=== PATIENT | male | born 1965 | race African-American/Black ===

== ENCOUNTER 2025-01-09 18:11 | Inpatient (IN) | payer MEDICARE, MEDICAID ==
[~2025-01-09] VITALS: Ht 175.3 cm; Wt 120.2 kg
[~2025-01-09 18:11] MED LIST: DIVA250T2 PO; QUET25TA PO; RISO02 PO
[2025-01-09 18:48] VITALS: O2SAT 98
[2025-01-09] MEDS: SODIUM CHLORIDE 0.9% 1,000 ML IV ONE (20:30)
[2025-01-09 20:42] LABS: BASOPHILS % 0.8 % (0.0-2.0); EOSINOPHILS % 0.5 % (0.0-5.0); HEMATOCRIT. 26.7 % (42.0-52.0); HEMOGLOBIN. 8.5 g/dL (14.0-18.0); LYMPHOCYTES % 10.9 % (20.0-50.0); MEAN PLATELET VOLUME 8.6 fl (7.4-10.4); MONOCYTES % 5.0 % (2.0-8.0); NEUTROPHILS % 82.8 % (40.0-76.0); PLATELET 317 x1000/uL (130-400); RED BLOOD CELL COUNT 2.88 mill/uL (4.7-6.1); RED CELL DISTRIBUTION WIDTH 20.1 % (11.6-14.6)
[2025-01-09 20:56] LABS: UREA NITROGEN BLOOD 14 mg/dL (9-23)
[2025-01-09 20:57] LABS: CREATININE 0.9 mg/dL (0.6-1.3)
[2025-01-09 20:59] LABS: ASPARTATE AMINOTRANSFERASE 21 IU/L (<34); BILIRUBIN DIRECT 0.2 mg/dL (<=3.0); BILIRUBIN TOTAL 0.4 mg/dL (0.1-1.0); PROTEIN TOTAL 7.2 g/dL (6.0-8.3)
[2025-01-09] MEDS: PIPERACILLIN/TAZO 3.375G/50ML 50 ML IV ONE (21:33)
[2025-01-09] MEDS ORDERED: IPRATROPIUM/ALBUTEROL 0.5-3(2.5)MG/3ML NEB HHN PRN (23:15)
[2025-01-09] MEDS ORDERED: ACETAMINOPHEN 325MG TABLET PO PRN (23:15)
[2025-01-09] MEDS ORDERED: ONDANSETRON HCL 4MG/2ML INJ IV PRN (23:15)
[2025-01-09] MEDS: VANCOMYCIN 1G PREMIX 200 ML IV ONE (23:30)
[2025-01-09 23:31] LABS: INR 1.0
[2025-01-10] VITALS (7 sets, daily range): BP systolic 98–142; BP diastolic 76–95; PULSE 106–114; RESP 18–20; TEMP 35.8–36.6; O2SAT 96–100
[2025-01-10] LABS: CLARITY URINE CLEAR (CLEAR); COLOR URINE YELLOW (YELLOW); GLUCOSE URINE NEGATIVE (NEGATIVE); KETONES URINE TRACE (NEGATIVE); LEUKOCYTE ESTERASE URINE NEGATIVE (NEGATIVE); NITRITE URINE NEGATIVE (NEGATIVE); OCCULT BLOOD URINE NEGATIVE (NEGATIVE); PH URINE 5.5 (4.5-8.0); PROTEIN URINE 1+ (NEGATIVE); SPECIFIC GRAVITY URINE 1.024 (1.005-1.030); UROBILINOGEN URINE 1.0 E.U./dL (0.2-1.0)
[2025-01-10 02:13] LABS: SQUAMOUS EPITHELIAL CELL URINE FEW /lpf (RARE/1+)
[2025-01-10 02:14] LABS: RBC URINE 0-2 /hpf (0-2); WBC URINE 0-2 /hpf (0-2)
[2025-01-10 02:16] LABS: BACTERIA URINE TRACE
[2025-01-10] MEDS: POTASSIUM CHLORIDE 20MEQ/PACKET PO NR (03:20)
[2025-01-10] MEDS: VANCOMYCIN 1GM/200ML PMX (BAXTER) IV SCH (04:10)
[2025-01-10] MEDS: PIPERACILLIN/TAZO 3.375G/50ML 50 ML IV SCH (05:57)
[2025-01-10] MEDS: ENOXAPARIN 30MG/0.3ML SYR SUBCUT SCH (10:03)
[2025-01-10 17:23] LABS: HEMATOCRIT. 21.8 % (42.0-52.0); HEMOGLOBIN. 7.2 g/dL (14.0-18.0); MEAN PLATELET VOLUME 8.0 fl (7.4-10.4); PLATELET 266 x1000/uL (130-400); RED BLOOD CELL COUNT 2.43 mill/uL (4.7-6.1); RED CELL DISTRIBUTION WIDTH 20.2 % (11.6-14.6)
[2025-01-10 17:27] LABS: CREATININE 0.8 mg/dL (0.6-1.3)
[2025-01-10 17:28] LABS: UREA NITROGEN BLOOD 12 mg/dL (9-23)
[2025-01-10 17:30] LABS: PHOSPHORUS 2.2 mg/dL (2.5-4.9)
[2025-01-10] MEDS: ENOXAPARIN 100MG/ML SYR SUBCUT SCH (19:00)
[2025-01-10] MEDS: VANCOMYCIN 1GM PMX (XELLIA) 200 ML IV SCH (21:36)
[2025-01-11 04:00] VITALS: BP 133/84; PULSE 109; RESP 20; TEMP 36.1; O2SAT 100
[2025-01-11] MEDS: POTASSIUM PHOSPHATE 15 MMOL in DEXT 5% WATER 245 ML IV SCH (05:23)
[2025-01-11] MEDS: ACETAMINOPHEN 325MG TABLET PO PRN (06:33)
[2025-01-11 08:00] VITALS: BP 142/91; PULSE 111; RESP 17; TEMP 36.6; O2SAT 98
[2025-01-11 08:00] LABS: BAND% 9.0 % (1.0-6.0); EOSINOPHILS % MANUAL 1.0 % (0.0-5.0); LYMPHOCYTES % MANUAL 17.0 % (20.0-50.0); MONOCYTES % MANUAL 5.0 % (2.0-8.0); NEUTROPHILS % MANUAL 68.0 % (45.0-75.0); PLATELET ESTIMATE NORMAL
[2025-01-11 12:00] VITALS: BP 105/70; PULSE 111; RESP 16; TEMP 36.4; O2SAT 97
[2025-01-11] MEDS: SODIUM HYPOCHLORITE 0.125% 473ML SOLUTION TOP SCH (14:38)
[2025-01-11 16:00] VITALS: BP 134/88; PULSE 111; RESP 17; TEMP 36.3; O2SAT 98
[2025-01-11 17:40] LABS: MEAN PLATELET VOLUME 8.4 fl (7.4-10.4); PLATELET 292 x1000/uL (130-400); RED BLOOD CELL COUNT 2.18 mill/uL (4.7-6.1); RED CELL DISTRIBUTION WIDTH 20.1 % (11.6-14.6)
[2025-01-11 17:42] LABS: HEMATOCRIT. 19.9 % (42.0-52.0); HEMOGLOBIN. 6.4 g/dL (14.0-18.0)
[2025-01-11 17:58] LABS: CREATININE 0.7 mg/dL (0.6-1.3); UREA NITROGEN BLOOD 10 mg/dL (9-23)
[2025-01-11 17:59] LABS: EOSINOPHILS % MANUAL 1.0 % (0.0-5.0); LYMPHOCYTES % MANUAL 19.0 % (20.0-50.0); MONOCYTES % MANUAL 5.0 % (2.0-8.0); NEUTROPHILS % MANUAL 75.0 % (45.0-75.0); PLATELET ESTIMATE NORMAL
[2025-01-11] MEDS: POTASSIUM CHLORIDE 20MEQ TABLET SR PO SCH (19:01)
[2025-01-11 20:00] VITALS: BP 114/81; PULSE 114; RESP 19; TEMP 36; O2SAT 97
[2025-01-12] VITALS (13 sets, daily range): BP systolic 126–165; BP diastolic 83–105; PULSE 108–115; RESP 16–21; TEMP 36.05844–36.3; O2SAT 96–99
[2025-01-12] MEDS: HYDROCODONE/ACETAMINOPHEN 5/325MG TABLET PO PRN (00:02)
[2025-01-12] MEDS ORDERED: VANCOMYCIN 750MG PMX (XELLIA) 150 ML IV SCH (05:00)
[2025-01-12] MEDS: VANCOMYCIN 750MG PREMIX 150 ML IV SCH (05:42)
[2025-01-12 12:36] LABS: BASOPHILS % 0.4 % (0.0-2.0); EOSINOPHILS % 0.2 % (0.0-5.0); HEMATOCRIT. 23.1 % (42.0-52.0); HEMOGLOBIN. 7.7 g/dL (14.0-18.0); LYMPHOCYTES % 11.9 % (20.0-50.0); MEAN PLATELET VOLUME 7.8 fl (7.4-10.4); MONOCYTES % 8.0 % (2.0-8.0); NEUTROPHILS % 79.5 % (40.0-76.0); PLATELET 318 x1000/uL (130-400); RED BLOOD CELL COUNT 2.60 mill/uL (4.7-6.1); RED CELL DISTRIBUTION WIDTH 18.3 % (11.6-14.6)
[2025-01-12 12:50] LABS: CREATININE 0.6 mg/dL (0.6-1.3)
[2025-01-12 12:51] LABS: UREA NITROGEN BLOOD 9 mg/dL (9-23)
[2025-01-12] MEDS ORDERED: NALOXONE HCL 0.4MG/ML VIAL IV PRN (16:00)
[2025-01-12] MEDS: HYDROCODONE/ACETAMINOPHEN 10/325MG TABLET PO PRN (16:09)
[2025-01-13] VITALS: BP 121/75; PULSE 116; PULSE 66; RESP 20; RESP 22; TEMP 36.4; O2SAT 96
[2025-01-13 04:00] VITALS: BP 119/70; PULSE 114; RESP 20; TEMP 36.1; O2SAT 99
[2025-01-13 08:00] VITALS: BP_SYST 121; BP_SYST 127; BP_DIAS 90; PULSE 118; RESP 17; RESP 20; TEMP 36.4; TEMP 36.7; O2SAT 98; O2SAT 99
[2025-01-13 10:06] LABS: BASOPHILS % 1.3 % (0.0-2.0); EOSINOPHILS % 0.3 % (0.0-5.0); HEMATOCRIT. 23.0 % (42.0-52.0); HEMOGLOBIN. 7.5 g/dL (14.0-18.0); LYMPHOCYTES % 9.2 % (20.0-50.0); MEAN PLATELET VOLUME 7.8 fl (7.4-10.4); MONOCYTES % 5.7 % (2.0-8.0); NEUTROPHILS % 83.5 % (40.0-76.0); PLATELET 368 x1000/uL (130-400); RED BLOOD CELL COUNT 2.56 mill/uL (4.7-6.1); RED CELL DISTRIBUTION WIDTH 18.2 % (11.6-14.6)
[2025-01-13 10:21] LABS: INR 1.0
[2025-01-13 10:23] LABS: CREATININE 0.7 mg/dL (0.6-1.3); UREA NITROGEN BLOOD 9 mg/dL (9-23)
[2025-01-13] MEDS: POTASSIUM CHLORIDE 20MEQ/PACKET PO NR (11:45)
[2025-01-13 12:00] VITALS: BP 101/68; PULSE 119; RESP 16; RESP 18; TEMP 36.1; O2SAT 98
[2025-01-13] MEDS: SUCRALFATE 1G TABLET PO SCH (12:44)
[2025-01-13] MEDS: PANTOPRAZOLE 40MG DR TABLET PO SCH (12:44)
[2025-01-13 12:56] LABS: VITAMIN B12 SERUM 1627 pg/mL (211-911)
[2025-01-13 16:00] VITALS: BP 108/72; PULSE 122; RESP 18; TEMP 36.2; O2SAT 98
[2025-01-13 20:00] VITALS: BP 110/78; PULSE 118; RESP 19; TEMP 36.6; O2SAT 97
[2025-01-13] MEDS: VANCOMYCIN 750MG PREMIX 150 ML IV SCH (23:12)
[2025-01-13] MEDS: PIPERACILLIN/TAZO 3.375G/50ML 50 ML IV SCH (23:12)
[2025-01-14] VITALS: BP 140/60; PULSE 140; RESP 17; TEMP 36.4; O2SAT 99
[2025-01-14 08:00] VITALS: BP 111/82; PULSE 119; RESP 17; TEMP 37.3; O2SAT 97
[2025-01-14 10:20] LABS: BASOPHILS % 0.4 % (0.0-2.0); EOSINOPHILS % 0.3 % (0.0-5.0); HEMATOCRIT. 22.9 % (42.0-52.0); HEMOGLOBIN. 7.4 g/dL (14.0-18.0); LYMPHOCYTES % 11.2 % (20.0-50.0); MEAN PLATELET VOLUME 7.4 fl (7.4-10.4); MONOCYTES % 7.1 % (2.0-8.0); NEUTROPHILS % 81.0 % (40.0-76.0); PLATELET 302 x1000/uL (130-400); RED BLOOD CELL COUNT 2.53 mill/uL (4.7-6.1); RED CELL DISTRIBUTION WIDTH 19.5 % (11.6-14.6)
[2025-01-14 11:02] LABS: CREATININE 0.6 mg/dL (0.6-1.3); UREA NITROGEN BLOOD 8 mg/dL (9-23)
[2025-01-14 11:04] LABS: PHOSPHORUS 2.3 mg/dL (2.5-4.9)
[2025-01-14 12:00] VITALS: BP 124/83; PULSE 114; RESP 17; TEMP 36.1; O2SAT 98
[2025-01-14 16:00] VITALS: BP 125/81; PULSE 118; RESP 17; TEMP 36.4; O2SAT 100
[2025-01-14] MEDS: MENTHOL/LANOLIN/CALAMINE/ZN OX OINT 71GM TOP SCH (18:08)
[2025-01-14 20:00] VITALS: BP 127/83; PULSE 113; RESP 20; TEMP 36.3; O2SAT 99
[2025-01-14] MEDS: MAGNESIUM 2 G PREMIX 50 ML IV SCH (20:01)
[2025-01-14] MEDS: POTASSIUM PHOSPHATE 20 MMOL in DEXT 5% WATER 243.3333 ML IV SCH (22:23)
[2025-01-15 08:00] VITALS: BP 129/89; PULSE 116; RESP 16; TEMP 36.5; O2SAT 100
[2025-01-15 12:00] VITALS: BP 118/72; PULSE 123; RESP 20; TEMP 36.7; O2SAT 100
[2025-01-15 16:00] VITALS: BP 111/74; PULSE 109; RESP 16; TEMP 36.6; O2SAT 100
[2025-01-15] MEDS: POTASSIUM CHLORIDE 20MEQ/PACKET PO NR (16:32)
[2025-01-15] MEDS: PANTOPRAZOLE SODIUM 40 MG/VIAL IV SCH (17:21)
[2025-01-15 20:00] VITALS: BP 149/83; PULSE 122; RESP 20; TEMP 36.4; O2SAT 97
[2025-01-15] MEDS ORDERED: PANTOPRAZOLE 40MG DR TABLET PO SCH (21:00)
[2025-01-16] VITALS (10 sets, daily range): BP systolic 109–130; BP diastolic 50–81; PULSE 114–124; RESP 16–20; TEMP 36.2–36.6; O2SAT 95–100
[2025-01-16 09:04] LABS: BASOPHILS % 0.6 % (0.0-2.0); EOSINOPHILS % 0.2 % (0.0-5.0); HEMATOCRIT. 22.7 % (42.0-52.0); HEMOGLOBIN. 7.4 g/dL (14.0-18.0); LYMPHOCYTES % 8.2 % (20.0-50.0); MEAN PLATELET VOLUME 8.0 fl (7.4-10.4); MONOCYTES % 6.3 % (2.0-8.0); NEUTROPHILS % 84.7 % (40.0-76.0); PLATELET 288 x1000/uL (130-400); RED BLOOD CELL COUNT 2.50 mill/uL (4.7-6.1); RED CELL DISTRIBUTION WIDTH 18.8 % (11.6-14.6)
[2025-01-16 09:20] LABS: CREATININE 0.5 mg/dL (0.6-1.3)
[2025-01-16 09:21] LABS: UREA NITROGEN BLOOD 7 mg/dL (9-23)
[2025-01-16 09:25] LABS: PHOSPHORUS 2.4 mg/dL (2.5-4.9)
[2025-01-16] MEDS ORDERED: IOHEXOL-300 50 ML BOTTLE IV ONE (10:11)
[2025-01-16] MEDS ORDERED: LIDOCAINE HCL 1% 20ML VIAL ONE (11:19)
[2025-01-16] MEDS: FERROUS SULFATE 325MG TABLET PO SCH (13:01)
[2025-01-16] MEDS: ASCORBIC ACID 500 MG TABLET PO SCH (13:01)
[2025-01-16] MEDS: SODIUM PHOSPHATE 10 MMOL in DEXT 5% WATER 246.6667 ML IV SCH (14:47)
[2025-01-16] MEDS: RISPERIDONE 0.25MG TABLET PO SCH (21:10)
[2025-01-17] VITALS: BP 104/58; PULSE 123; RESP 18; TEMP 37.1; O2SAT 96
[2025-01-17 04:00] VITALS: BP 109/67; PULSE 118; RESP 18; TEMP 37.2; O2SAT 97
[2025-01-17 08:00] VITALS: BP 107/72; PULSE 114; RESP 17; TEMP 36.4; O2SAT 95
[2025-01-17 11:22] LABS: BASOPHILS % 0.4 % (0.0-2.0); EOSINOPHILS % 0.3 % (0.0-5.0); LYMPHOCYTES % 8.4 % (20.0-50.0); MEAN PLATELET VOLUME 7.3 fl (7.4-10.4); MONOCYTES % 8.4 % (2.0-8.0); NEUTROPHILS % 82.5 % (40.0-76.0); PLATELET 244 x1000/uL (130-400); RED BLOOD CELL COUNT 2.32 mill/uL (4.7-6.1); RED CELL DISTRIBUTION WIDTH 18.2 % (11.6-14.6)
[2025-01-17 11:34] LABS: CREATININE 0.6 mg/dL (0.6-1.3)
[2025-01-17 11:35] LABS: UREA NITROGEN BLOOD 8 mg/dL (9-23)
[2025-01-17 11:39] LABS: FOLIC ACID (FOLATE) SERUM 11.48 ng/mL (>5.38)
[2025-01-17 11:52] LABS: HEMATOCRIT. 20.7 % (42.0-52.0); HEMOGLOBIN. 7.1 g/dL (14.0-18.0)
[2025-01-17 12:00] VITALS: BP 108/58; PULSE 111; RESP 17; TEMP 36.4; O2SAT 96
[2025-01-17] MEDS: SODIUM CHLORIDE 0.9% 1,000 ML IV ONE (12:11)
[2025-01-17 16:00] VITALS: BP 125/83; PULSE 113; RESP 16; TEMP 36.1; O2SAT 96
[2025-01-17] MEDS ORDERED: QUETIAPINE FUMARATE 25MG TABLET PO SCH (17:00)
[2025-01-17] MEDS ORDERED: DIVALPROEX SODIUM 250MG ER TABLET PO SCH (17:00)
[2025-01-17 20:00] VITALS: BP 126/78; PULSE 114; RESP 17; TEMP 36.2; O2SAT 96
[2025-01-17] MEDS ORDERED: NALOXONE HCL 0.4MG/ML VIAL IV PRN (20:15)
[2025-01-17] MEDS: DIVALPROEX SODIUM 250MG DR TABLET PO SCH (20:36)
[2025-01-17] MEDS: TRAZODONE HCL 50MG TABLET PO SCH (20:37)
[2025-01-17] MEDS: RISPERIDONE 0.5MG TABLET PO SCH (20:37)
[2025-01-17] MEDS: HYDROCODONE/ACETAMINOPHEN 10/325MG TABLET PO PRN (20:38)
[2025-01-18] VITALS (10 sets, daily range): BP systolic 98–130; BP diastolic 64–83; PULSE 109–119; RESP 16–22; TEMP 36.1–36.5; O2SAT 94–100
[2025-01-18] MEDS: FERROUS SULFATE 325MG TABLET PO SCH (08:28)
[2025-01-18 09:52] LABS: BASOPHILS % 0.4 % (0.0-2.0); EOSINOPHILS % 0.3 % (0.0-5.0); LYMPHOCYTES % 7.5 % (20.0-50.0); MEAN PLATELET VOLUME 7.0 fl (7.4-10.4); MONOCYTES % 8.4 % (2.0-8.0); NEUTROPHILS % 83.4 % (40.0-76.0); PLATELET 225 x1000/uL (130-400); RED BLOOD CELL COUNT 2.36 mill/uL (4.7-6.1); RED CELL DISTRIBUTION WIDTH 18.5 % (11.6-14.6)
[2025-01-18 10:00] LABS: INR 1.1
[2025-01-18 10:03] LABS: CREATININE 0.6 mg/dL (0.6-1.3); UREA NITROGEN BLOOD 7 mg/dL (9-23)
[2025-01-18 10:09] LABS: HEMOGLOBIN. 6.8 g/dL (14.0-18.0)
[2025-01-18 10:10] LABS: HEMATOCRIT. 21.1 % (42.0-52.0)
[2025-01-18] MEDS: POTASSIUM CHLORIDE 20MEQ TABLET SR PO SCH (12:14)
[2025-01-19] VITALS (11 sets, daily range): BP systolic 114–141; BP diastolic 73–93; PULSE 104–119; RESP 16–20; TEMP 36.2–37.28076; O2SAT 96–98
[2025-01-19 07:08] LABS: BASOPHILS % 0.3 % (0.0-2.0); EOSINOPHILS % 0.3 % (0.0-5.0); HEMATOCRIT. 22.9 % (42.0-52.0); HEMOGLOBIN. 7.7 g/dL (14.0-18.0); LYMPHOCYTES % 9.6 % (20.0-50.0); MEAN PLATELET VOLUME 7.5 fl (7.4-10.4); MONOCYTES % 10.0 % (2.0-8.0); NEUTROPHILS % 79.8 % (40.0-76.0); PLATELET 222 x1000/uL (130-400); RED BLOOD CELL COUNT 2.61 mill/uL (4.7-6.1); RED CELL DISTRIBUTION WIDTH 18.9 % (11.6-14.6)
[2025-01-19 07:10] LABS: INR 1.1
[2025-01-19 07:30] LABS: CREATININE 0.6 mg/dL (0.6-1.3); UREA NITROGEN BLOOD 8 mg/dL (9-23)
[2025-01-19] MEDS ORDERED: LIDOCAINE HCL/PF 1% 10 MG/ML 5ML VIAL ONE (13:43)
[2025-01-19] MEDS ORDERED: PROPOFOL 200MG/20ML VIAL IV ONE (13:43)
[2025-01-19] MEDS: DILTIAZEM HCL 5MG/ML 5ML VIAL IV SCH ×2 (21:18→22:07)
[2025-01-19] MEDS: MORPHINE SULFATE 4 MG/ML INJ (FOR IV/IM USE) IV NR (23:49)
[2025-01-20] VITALS: BP 117/75; PULSE 149; RESP 19; TEMP 36.6; O2SAT 98
[2025-01-20] MEDS: SODIUM CHLORIDE 0.9% (SEPSIS BOLUS) IV NR ×2 (00:04→01:00)
[2025-01-20] MEDS: HYDROMORPHONE HCL/PF 1MG/ML INJ IV NR (00:24)
[2025-01-20] MEDS: METOPROLOL TARTRATE 5MG/5ML VIAL IV NR (01:55)
[2025-01-20 03:17] LABS: HEMATOCRIT. 25.9 % (42.0-52.0); HEMOGLOBIN. 8.3 g/dL (14.0-18.0); MEAN PLATELET VOLUME 7.6 fl (7.4-10.4); PLATELET 209 x1000/uL (130-400); RED BLOOD CELL COUNT 2.94 mill/uL (4.7-6.1); RED CELL DISTRIBUTION WIDTH 19.3 % (11.6-14.6)
[2025-01-20 03:30] LABS: CREATININE 0.6 mg/dL (0.6-1.3); UREA NITROGEN BLOOD 8 mg/dL (9-23)
[2025-01-20 03:32] LABS: PHOSPHORUS 2.2 mg/dL (2.5-4.9)
[2025-01-20 04:00] VITALS: BP 84/51; PULSE 137; RESP 18; TEMP 36.9; O2SAT 96
[2025-01-20] MEDS: SODIUM CHLORIDE 0.9% 1,000 ML IV ONE (05:12)
[2025-01-20 05:18] LABS: LYMPHOCYTES % MANUAL 3.0 % (20.0-50.0); MONOCYTES % MANUAL 2.0 % (2.0-8.0); NEUTROPHILS % MANUAL 95.0 % (45.0-75.0)
[2025-01-20 05:20] LABS: PLATELET ESTIMATE NORMAL
[2025-01-20 08:00] VITALS: BP 94/55; PULSE 120; RESP 16; TEMP 36.5; O2SAT 93
[2025-01-20] MEDS: PANTOPRAZOLE 40MG DR TABLET PO SCH (09:01)
[2025-01-20] MEDS: MAGNESIUM 2 G PREMIX 50 ML IV ONE (11:58)
[2025-01-20 12:00] VITALS: BP 103/67; PULSE 105; RESP 17; TEMP 36.4; O2SAT 96
[2025-01-20 16:00] VITALS: BP 119/75; PULSE 109; RESP 17; TEMP 36.2; O2SAT 98
[2025-01-20 20:00] VITALS: BP 116/77; PULSE 111; RESP 19; TEMP 36.4; O2SAT 97
[2025-01-21] VITALS (7 sets, daily range): BP systolic 81–128; BP diastolic 42–80; PULSE 91–158; RESP 13–19; TEMP 36.3–36.7; O2SAT 94–98
[2025-01-21] MEDS: DILTIAZEM HCL 5MG/ML 5ML VIAL IV NR ×2 (04:50→05:45)
[2025-01-21] MEDS: SODIUM CHLORIDE 0.9% 1,000 ML IV ONE (04:50)
[2025-01-21] MEDS ORDERED: METOPROLOL TARTRATE 25MG TABLET PO SCH (09:30)
[2025-01-21 10:12] LABS: PLATELET 173 x1000/uL (130-400); RED BLOOD CELL COUNT 2.48 mill/uL (4.7-6.1); RED CELL DISTRIBUTION WIDTH 19.0 % (11.6-14.6)
[2025-01-21] MEDS: METOPROLOL TARTRATE 50MG TABLET PO SCH (22:41)
[2025-01-22] VITALS: BP 97/61; PULSE 105; RESP 18; TEMP 36.4; O2SAT 96
[2025-01-22 04:00] VITALS: BP 91/64; PULSE 99; RESP 18; TEMP 36.1; O2SAT 97
[2025-01-22 12:00] VITALS: BP 124/84; PULSE 93; RESP 12; TEMP 36.4; O2SAT 94
[2025-01-22 16:00] VITALS: BP 110/72; PULSE 156; RESP 16; TEMP 36.1; O2SAT 99
[2025-01-22] MEDS: DILTIAZEM HCL 5MG/ML 5ML VIAL IV SCH (18:58)
[2025-01-22 20:00] VITALS: BP 105/66; PULSE 152; RESP 20; TEMP 36.8
[2025-01-22] MEDS ORDERED: NALOXONE HCL 0.4MG/ML VIAL IV PRN (22:15)
[2025-01-23] VITALS (7 sets, daily range): BP systolic 102–125; BP diastolic 66–76; PULSE 89–114; RESP 14–20; TEMP 36.3–36.8; O2SAT 95–99
[2025-01-23] MEDS: HYDROCODONE/ACETAMINOPHEN 10/325MG TABLET PO PRN (00:59)
[2025-01-23] MEDS: METOPROLOL TARTRATE 25MG TABLET PO SCH (14:58)
[2025-01-23 21:28] LABS: BASOPHILS % 0.4 % (0.0-2.0); EOSINOPHILS % 0.3 % (0.0-5.0); HEMATOCRIT. 22.8 % (42.0-52.0); HEMOGLOBIN. 7.3 g/dL (14.0-18.0); LYMPHOCYTES % 10.7 % (20.0-50.0); MEAN PLATELET VOLUME 8.0 fl (7.4-10.4); MONOCYTES % 9.5 % (2.0-8.0); NEUTROPHILS % 79.1 % (40.0-76.0); PLATELET 187 x1000/uL (130-400); RED BLOOD CELL COUNT 2.58 mill/uL (4.7-6.1); RED CELL DISTRIBUTION WIDTH 19.9 % (11.6-14.6)
[2025-01-23 21:41] LABS: CREATININE 0.5 mg/dL (0.6-1.3)
[2025-01-23 21:42] LABS: UREA NITROGEN BLOOD 10 mg/dL (9-23)
[2025-01-23 21:43] LABS: ASPARTATE AMINOTRANSFERASE 22 IU/L (<34)
[2025-01-23 21:44] LABS: BILIRUBIN DIRECT 0.1 mg/dL (<=3.0); PHOSPHORUS 2.4 mg/dL (2.5-4.9)
[2025-01-23 21:45] LABS: BILIRUBIN TOTAL 0.3 mg/dL (0.1-1.0); PROTEIN TOTAL 5.8 g/dL (6.0-8.3)
[2025-01-24 04:00] VITALS: BP 115/58; PULSE 109; RESP 18; TEMP 36.3; O2SAT 98
[2025-01-24 08:00] VITALS: BP 102/68; PULSE 91; RESP 19; TEMP 36.6; O2SAT 99
[2025-01-24] MEDS: POTASSIUM PHOSPHATE 15 MMOL in DEXT 5% WATER 245 ML IV SCH (10:18)
[2025-01-24 12:41] VITALS: BP 117/79; PULSE 98; RESP 19; TEMP 36.4; O2SAT 99
[2025-01-24 16:00] VITALS: BP 124/77; PULSE 121; RESP 20; TEMP 36.4; O2SAT 97
[2025-01-24 20:00] VITALS: BP 98/62; PULSE 65; RESP 20; TEMP 35.7; O2SAT 95
[2025-01-24] MEDS: SODIUM CHLORIDE 0.9% 500 ML IV ONE (23:54)
[2025-01-25] VITALS: BP 122/76; PULSE 120; RESP 19; TEMP 36.3; O2SAT 98
[2025-01-25 04:00] VITALS: BP 116/74; PULSE 120; RESP 19; TEMP 36.2; O2SAT 96
[2025-01-25 08:00] VITALS: BP 127/76; PULSE 110; RESP 18; TEMP 36.6; O2SAT 97
[2025-01-25 12:00] VITALS: BP 117/70; PULSE 113; RESP 17; TEMP 36.4; O2SAT 97
[2025-01-25 16:00] VITALS: BP 112/64; PULSE 108; RESP 18; TEMP 35.8; TEMP 36.3; O2SAT 96
[2025-01-25 20:00] VITALS: BP 124/79; PULSE 114; RESP 20; TEMP 36.2; O2SAT 97
[2025-01-25] MEDS: METOPROLOL TARTRATE 25MG TABLET PO SCH (20:53)
[2025-01-26] VITALS (14 sets, daily range): BP systolic 101–119; BP diastolic 62–84; PULSE 91–120; RESP 13–21; TEMP 36–36.6; O2SAT 95–100
[2025-01-26] MEDS ORDERED: LIDOCAINE HCL 1% 10 MG/ML 10ML VIAL ONE (08:06)
[2025-01-26] MEDS ORDERED: FENTANYL CITRATE/PF 50MCG/ML 2ML VIAL ONE (10:38)
[2025-01-27] VITALS: BP 100/67; PULSE 106; RESP 18; TEMP 36.5; O2SAT 96
[2025-01-27 04:00] VITALS: BP 100/70; PULSE 112; RESP 20; TEMP 35.7; O2SAT 95
[2025-01-27 08:00] VITALS: BP 100/71; PULSE 114; RESP 16; TEMP 36.3; O2SAT 97
[2025-01-27 12:00] VITALS: BP 123/73; PULSE 112; RESP 15; TEMP 36.3; O2SAT 96
[2025-01-27 16:00] VITALS: BP 101/81; PULSE 115; RESP 18; TEMP 36.4; O2SAT 97
[2025-01-27 20:00] VITALS: BP 113/64; PULSE 119; RESP 19; TEMP 36.4; O2SAT 98
[2025-01-28] VITALS: BP 107/70; PULSE 107; RESP 18; TEMP 36; O2SAT 99
[2025-01-28] MEDS: HYDROCODONE/ACETAMINOPHEN 10/325MG TABLET PO PRN (01:38)
[2025-01-28 04:00] VITALS: BP 97/61; PULSE 112; RESP 18; TEMP 36.3; O2SAT 98
[2025-01-28 08:00] VITALS: BP 93/63; PULSE 108; RESP 18; TEMP 36.7; O2SAT 98
[2025-01-28 12:00] VITALS: BP 114/65; PULSE 113; RESP 18; TEMP 36.6; O2SAT 98
[2025-01-28 16:00] VITALS: BP 106/60; PULSE 106; RESP 18; TEMP 36.7; O2SAT 98
[2025-01-28 20:00] VITALS: BP 114/76; PULSE 118; RESP 19; TEMP 36.9; O2SAT 99
[2025-01-29] VITALS: BP 95/56; PULSE 100; RESP 19; TEMP 36.6; O2SAT 100
[2025-01-29 04:00] VITALS: BP 114/75; PULSE 117; RESP 20; TEMP 36.7; TEMP 36.9; O2SAT 97
[2025-01-29 08:18] VITALS: BP 118/76; PULSE 114; RESP 15; TEMP 36.3; O2SAT 96
[2025-01-29] MEDS: CEFTRIAXONE 2GM/50ML 50 ML IV SCH (09:43)
[2025-01-29 12:00] VITALS: BP 116/81; PULSE 109; RESP 18; TEMP 36.7; O2SAT 97
[2025-01-29 12:57] LABS: HEMATOCRIT. 24.6 % (42.0-52.0); HEMOGLOBIN. 7.6 g/dL (14.0-18.0); MEAN PLATELET VOLUME 8.1 fl (7.4-10.4); PLATELET 328 x1000/uL (130-400); RED BLOOD CELL COUNT 2.68 mill/uL (4.7-6.1); RED CELL DISTRIBUTION WIDTH 20.4 % (11.6-14.6)
[2025-01-29] MEDS: DAPTOMYCIN IV SCH (13:08)
[2025-01-29] MEDS: SODIUM CHLORIDE 0.9% IV SCH (13:08)
[2025-01-29 13:17] LABS: CREATININE 0.4 mg/dL (0.6-1.3)
[2025-01-29 13:18] LABS: UREA NITROGEN BLOOD 6 mg/dL (9-23)
[2025-01-29] MEDS: POTASSIUM CHLORIDE 20MEQ/PACKET PO NR (14:25)
[2025-01-29 16:00] VITALS: BP 101/74; PULSE 111; RESP 16; TEMP 36.6; O2SAT 97
[2025-01-29 17:54] LABS: EOSINOPHILS % MANUAL 1.0 % (0.0-5.0); LYMPHOCYTES % MANUAL 9.0 % (20.0-50.0); METAMYELOCYTES % 1.0 % (0-0); MONOCYTES % MANUAL 10.0 % (2.0-8.0); MYELOCYTES % 1.0 % (0-0); NEUTROPHILS % MANUAL 78.0 % (45.0-75.0); PLATELET ESTIMATE NORMAL
[2025-01-29 20:00] VITALS: BP 114/66; PULSE 104; RESP 20; TEMP 36.2; O2SAT 96
[2025-01-30] VITALS: BP 108/66; PULSE 98; RESP 20; TEMP 36.2; O2SAT 96
[2025-01-30 04:00] VITALS: BP 83/61; PULSE 115; RESP 20; TEMP 36.7; O2SAT 100
[2025-01-30 08:00] VITALS: BP 102/64; PULSE 109; RESP 16; TEMP 36.7; O2SAT 96
[2025-01-30 12:00] VITALS: BP 92/57; PULSE 113; RESP 16; TEMP 36.7; O2SAT 97
[2025-01-30] MEDS: DAPTOMYCIN 700 MG in SODIUM CHLORIDE 0.9% 50 ML IV SCH (14:28)
[2025-01-30 20:00] VITALS: BP 111/71; PULSE 114; RESP 16; TEMP 36.1; O2SAT 93
[2025-01-30 22:12] LABS: MEAN PLATELET VOLUME 8.2 fl (7.4-10.4); PLATELET 387 x1000/uL (130-400); RED BLOOD CELL COUNT 2.29 mill/uL (4.7-6.1); RED CELL DISTRIBUTION WIDTH 20.0 % (11.6-14.6)
[2025-01-30 22:24] LABS: CREATININE 0.3 mg/dL (0.6-1.3); UREA NITROGEN BLOOD 7 mg/dL (9-23)
[2025-01-30 22:26] LABS: PHOSPHORUS 2.7 mg/dL (2.5-4.9)
[2025-01-30 22:38] LABS: HEMATOCRIT. 20.5 % (42.0-52.0); HEMOGLOBIN. 6.5 g/dL (14.0-18.0)
[2025-01-31] VITALS (11 sets, daily range): BP systolic 98–126; BP diastolic 61–75; PULSE 107–125; RESP 15–20; TEMP 36.55848–37.33632; O2SAT 97–100
[2025-01-31 00:42] LABS: HEMATOCRIT. 21.1 % (42.0-52.0); MEAN PLATELET VOLUME 7.6 fl (7.4-10.4); PLATELET 422 x1000/uL (130-400); RED BLOOD CELL COUNT 2.38 mill/uL (4.7-6.1); RED CELL DISTRIBUTION WIDTH 20.3 % (11.6-14.6)
[2025-01-31 00:48] LABS: LYMPHOCYTES % MANUAL 10.0 % (20.0-50.0); MONOCYTES % MANUAL 9.0 % (2.0-8.0); NEUTROPHILS % MANUAL 81.0 % (45.0-75.0); PLATELET ESTIMATE NORMAL
[2025-01-31 01:29] LABS: HEMOGLOBIN. 6.8 g/dL (14.0-18.0)
[2025-01-31 02:11] LABS: LYMPHOCYTES % MANUAL 7.0 % (20.0-50.0); MONOCYTES % MANUAL 9.0 % (2.0-8.0); MYELOCYTES % 1.0 % (0-0); NEUTROPHILS % MANUAL 83.0 % (45.0-75.0); PLATELET ESTIMATE SLIGHTLY INCREASED
[2025-01-31 05:09] LABS: ALPHA FETOPROTEIN TUMOR MARKER < 1.8 ng/mL (0.0-8.4); CARCINOEMBRYONIC AG - SEND OUT 0.9 ng/mL (0.0-4.7)
[2025-01-31] MEDS: POTASSIUM CHLORIDE 20MEQ/PACKET PO NR (06:24)
[2025-01-31] MEDS: SODIUM CHLORIDE 0.9% 1,000 ML IV SCH (10:57)
[2025-01-31 12:38] LABS: HEMATOCRIT. 24.0 % (42.0-52.0); HEMOGLOBIN. 7.8 g/dL (14.0-18.0); MEAN PLATELET VOLUME 7.6 fl (7.4-10.4); PLATELET 380 x1000/uL (130-400); RED BLOOD CELL COUNT 2.71 mill/uL (4.7-6.1); RED CELL DISTRIBUTION WIDTH 19.0 % (11.6-14.6)
[2025-01-31 12:47] LABS: INR 1.2
[2025-01-31 12:53] LABS: UREA NITROGEN BLOOD 7 mg/dL (9-23)
[2025-01-31 12:55] LABS: PHOSPHORUS 2.8 mg/dL (2.5-4.9)
[2025-01-31 13:11] LABS: CREATININE 0.4 mg/dL (0.6-1.3)
[2025-01-31 15:45] LABS: BAND% 3.0 % (1.0-6.0); LYMPHOCYTES % MANUAL 5.0 % (20.0-50.0); MONOCYTES % MANUAL 10.0 % (2.0-8.0); NEUTROPHILS % MANUAL 82.0 % (45.0-75.0); PLATELET ESTIMATE NORMAL
[2025-01-31 16:51] LABS: ASPARTATE AMINOTRANSFERASE 28 IU/L (<34); BILIRUBIN DIRECT 0.1 mg/dL (<=3.0); BILIRUBIN TOTAL 0.4 mg/dL (0.1-1.0); PROTEIN TOTAL 6.2 g/dL (6.0-8.3)
[2025-02-01] VITALS: BP 135/84; PULSE 123; RESP 17; TEMP 36.8; O2SAT 96
[2025-02-01 04:00] VITALS: BP 115/78; PULSE 119; RESP 19; TEMP 36.6; O2SAT 100
[2025-02-01 06:40] LABS: BASOPHILS % 0.3 % (0.0-2.0); EOSINOPHILS % 0.2 % (0.0-5.0); HEMATOCRIT. 24.6 % (42.0-52.0); HEMOGLOBIN. 7.9 g/dL (14.0-18.0); LYMPHOCYTES % 7.3 % (20.0-50.0); MEAN PLATELET VOLUME 8.4 fl (7.4-10.4); MONOCYTES % 10.5 % (2.0-8.0); NEUTROPHILS % 81.7 % (40.0-76.0); PLATELET 280 x1000/uL (130-400); RED BLOOD CELL COUNT 2.76 mill/uL (4.7-6.1); RED CELL DISTRIBUTION WIDTH 19.1 % (11.6-14.6)
[2025-02-01 06:41] LABS: CREATININE 0.3 mg/dL (0.6-1.3)
[2025-02-01 06:42] LABS: UREA NITROGEN BLOOD 7 mg/dL (9-23)
[2025-02-01 06:44] LABS: PHOSPHORUS 3.0 mg/dL (2.5-4.9)
[2025-02-01 08:00] VITALS: BP 115/81; PULSE 121; RESP 19; TEMP 36.6; O2SAT 98
[2025-02-01] MEDS: POTASSIUM CHLORIDE 20MEQ/PACKET PO SCH (09:25)
[2025-02-01 12:00] VITALS: BP 112/80; PULSE 118; RESP 18; TEMP 36.5; O2SAT 98
[2025-02-01 16:00] VITALS: BP 128/70; PULSE 117; RESP 17; TEMP 36.6; O2SAT 97
[2025-02-01 20:00] VITALS: BP 109/71; PULSE 121; RESP 20; TEMP 36.7; O2SAT 93
[2025-02-02] VITALS: BP 99/61; PULSE 104; RESP 20; TEMP 37; O2SAT 95
[2025-02-02 04:00] VITALS: BP_SYST 95; BP_SYST 99; BP_DIAS 61; PULSE 104; PULSE 109; RESP 20; TEMP 36.8; TEMP 37; O2SAT 95
[2025-02-02 08:00] VITALS: BP 118/64; PULSE 107; RESP 18; TEMP 36.2; O2SAT 96
[2025-02-02] MEDS: IOHEXOL-300 100 ML BOTTLE ONE (08:34)
[2025-02-02] MEDS: LIDOCAINE HCL 1% 10 MG/ML 10ML VIAL ONE (08:34)
[2025-02-02] MEDS: IOHEXOL-350 100 ML BOTTLE ONE (08:35)
[2025-02-02] MEDS: SODIUM BICARBONATE 4.2% 2.5MEQ/5ML VIAL IV ONE (08:35)
[2025-02-02] MEDS: HYDROCODONE/ACETAMINOPHEN 10/325MG TABLET PO PRN (09:07)
[2025-02-02 12:00] VITALS: BP 109/79; PULSE 100; RESP 17; TEMP 36.2; O2SAT 99
[2025-02-02 12:36] LABS: HEMATOCRIT. 23.3 % (42.0-52.0); HEMOGLOBIN. 7.4 g/dL (14.0-18.0); MEAN PLATELET VOLUME 8.4 fl (7.4-10.4); PLATELET 301 x1000/uL (130-400); RED BLOOD CELL COUNT 2.61 mill/uL (4.7-6.1); RED CELL DISTRIBUTION WIDTH 19.3 % (11.6-14.6)
[2025-02-02 12:57] LABS: CREATININE 0.3 mg/dL (0.6-1.3); UREA NITROGEN BLOOD 7 mg/dL (9-23)
[2025-02-02 12:59] LABS: ASPARTATE AMINOTRANSFERASE 25 IU/L (<34); BILIRUBIN TOTAL 0.3 mg/dL (0.1-1.0); PROTEIN TOTAL 6.0 g/dL (6.0-8.3)
[2025-02-02 14:25] LABS: BAND% 14.0 % (1.0-6.0); EOSINOPHILS % MANUAL 1.0 % (0.0-5.0); LYMPHOCYTES % MANUAL 6.0 % (20.0-50.0); MONOCYTES % MANUAL 14.0 % (2.0-8.0); NEUTROPHILS % MANUAL 65.0 % (45.0-75.0); PLATELET ESTIMATE NORMAL
[2025-02-02 16:00] VITALS: BP 114/78; PULSE 105; RESP 17; TEMP 35.9; O2SAT 100
[2025-02-02 20:00] VITALS: BP 129/85; PULSE 115; RESP 18; TEMP 36.5; O2SAT 95
[2025-02-03] VITALS: BP 95/65; PULSE 97; RESP 16; TEMP 36.4; O2SAT 98
[2025-02-03 04:00] VITALS: BP 116/76; PULSE 108; RESP 16; TEMP 36.4; O2SAT 97
[2025-02-04 04:00] VITALS: BP 117/80; PULSE 91; RESP 18; TEMP 36.3; O2SAT 96
[2025-02-04 08:00] VITALS: BP 112/77; PULSE 99; RESP 18; TEMP 36.6; O2SAT 99
[2025-02-04 12:00] VITALS: BP 117/75; PULSE 95; RESP 18; TEMP 35.8; O2SAT 100
[2025-02-04 20:00] VITALS: BP 114/76; PULSE 104; RESP 16; TEMP 36.5; O2SAT 98
[2025-02-05] VITALS: BP 126/75; PULSE 106; RESP 17; TEMP 36.6; O2SAT 99
[2025-02-05 04:00] VITALS: BP 119/80; PULSE 105; RESP 18; TEMP 36.5; O2SAT 97
[2025-02-05 08:00] VITALS: BP 145/89; PULSE 105; RESP 18; TEMP 36.3; O2SAT 100
[2025-02-05 20:00] VITALS: BP 136/81; PULSE 100; RESP 18; TEMP 36.7
[2025-02-06 04:45] VITALS: BP 127/82; PULSE 99; RESP 18; TEMP 36.9; O2SAT 99
[2025-02-06 08:00] VITALS: BP 140/75; PULSE 96; RESP 18; TEMP 36.8; O2SAT 98
[2025-02-06 12:00] VITALS: BP 139/76; PULSE 94; RESP 19; TEMP 36.7; O2SAT 98
[2025-02-06 16:00] VITALS: BP 136/70; PULSE 90; RESP 18; TEMP 36.7; O2SAT 98
[2025-02-07] VITALS: BP 123/83; PULSE 99; RESP 18; TEMP 36.3; O2SAT 98
[2025-02-07 04:00] VITALS: BP 117/79; PULSE 94; RESP 16; RESP 18; TEMP 36.3; O2SAT 98
[2025-02-07 08:00] VITALS: BP 138/67; PULSE 101; RESP 17; TEMP 36.1; O2SAT 100
[2025-02-07 12:00] VITALS: BP 125/72; PULSE 96; RESP 17; TEMP 36.2; O2SAT 95
[2025-02-07 16:00] VITALS: RESP 17
[2025-02-07 20:00] VITALS: BP 106/72; PULSE 104; RESP 16; TEMP 36.7; O2SAT 100
[2025-02-08] VITALS: BP 110/72; PULSE 116; RESP 18; TEMP 36.6; O2SAT 97
[2025-02-08] MEDS ORDERED: NALOXONE HCL 0.4MG/ML VIAL IV PRN (00:30)
[2025-02-08] MEDS: HYDROCODONE/ACETAMINOPHEN 10/325MG TABLET PO PRN (00:34)
[2025-02-08 04:00] VITALS: BP 146/77; PULSE 111; RESP 19; TEMP 36.4; O2SAT 98
[2025-02-08 12:00] VITALS: BP 115/73; PULSE 108; RESP 18; TEMP 36.3; O2SAT 100
[2025-02-08 16:00] VITALS: BP 122/96; PULSE 108; RESP 20; TEMP 36.7; O2SAT 96
[2025-02-08 20:00] VITALS: BP 120/80; PULSE 115; RESP 18; TEMP 36.1; O2SAT 96
[2025-02-09 04:00] VITALS: BP 121/76; PULSE 103; RESP 19; TEMP 36.3; O2SAT 95
[2025-02-09 08:00] VITALS: BP 116/80; PULSE 107; RESP 16; TEMP 36.3; O2SAT 100
[2025-02-09] MEDS: IOHEXOL-300 50 ML BOTTLE IV ONE (08:36)
[2025-02-09] MEDS: FENTANYL CITRATE/PF 50MCG/ML 2ML VIAL IV ONE (08:36)
[2025-02-09] MEDS: SODIUM PHOSPHATE 15 MMOL in DEXT 5% WATER 245 ML IV ONE (08:37)
[2025-02-09 16:00] VITALS: BP 119/92; PULSE 114; RESP 20; O2SAT 96
[2025-02-09 20:00] VITALS: BP 119/74; PULSE 110; RESP 18; TEMP 36.4; O2SAT 95
[2025-02-10] VITALS: BP 102/64; PULSE 96; RESP 18; TEMP 36.4; O2SAT 98
[2025-02-10 08:00] VITALS: BP 117/68; PULSE 110; RESP 18; TEMP 36.4; O2SAT 99
[2025-02-10] MEDS ORDERED: FENTANYL CITRATE/PF 50MCG/ML 2ML VIAL ONE (09:40)
[2025-02-10 12:00] VITALS: BP 102/91; PULSE 96; RESP 17; TEMP 36.3; O2SAT 99
[2025-02-10 16:00] VITALS: BP 112/60; PULSE 108; RESP 18; TEMP 36.6; O2SAT 99
[2025-02-10 20:00] VITALS: BP 129/78; PULSE 100; RESP 18; O2SAT 96
[2025-02-11 08:00] VITALS: BP 125/79; PULSE 97; RESP 16; TEMP 36.8; O2SAT 97
[2025-02-11 12:00] VITALS: BP 117/83; PULSE 103; RESP 18; TEMP 36.6; O2SAT 98
[2025-02-11 16:00] VITALS: BP 115/78; PULSE 101; RESP 17; TEMP 36.4; O2SAT 98
[2025-02-11 20:00] VITALS: BP 132/79; PULSE 103; RESP 18; TEMP 36.4; O2SAT 97
[2025-02-12 04:00] VITALS: BP 132/74; PULSE 100; RESP 17; TEMP 36.4; O2SAT 98
[2025-02-12 08:00] VITALS: BP 136/83; PULSE 106; RESP 19; TEMP 37.1; O2SAT 99
[2025-02-12 12:00] VITALS: BP 117/84; PULSE 106; RESP 16; TEMP 36.9; O2SAT 98
[2025-02-12 16:00] VITALS: BP 130/84; PULSE 100; RESP 20; TEMP 36.4; O2SAT 100
[2025-02-12 20:00] VITALS: BP 137/87; PULSE 100; RESP 17; TEMP 36.4; O2SAT 100
[2025-02-13 08:00] VITALS: BP 108/78; PULSE 101; RESP 18; TEMP 36.2; O2SAT 100
[2025-02-13] MEDS: HYDROCODONE/ACETAMINOPHEN 10/325MG TABLET PO PRN (08:09)
[2025-02-13 12:00] VITALS: BP 112/75; PULSE 109; RESP 17; TEMP 37.3; O2SAT 100
[2025-02-13 16:00] VITALS: BP 105/73; PULSE 110; RESP 18; TEMP 37.3; O2SAT 100
[2025-02-13 20:00] VITALS: BP 102/68; PULSE 109; RESP 18; TEMP 36.6; O2SAT 98
[2025-02-14] VITALS: BP 98/65; PULSE 107; RESP 20; TEMP 36.3; O2SAT 100
[2025-02-14 04:00] VITALS: BP 120/72; PULSE 105; RESP 20; TEMP 36.3; O2SAT 100
[2025-02-14 08:00] VITALS: BP 122/77; PULSE 107; RESP 18; TEMP 36.8; O2SAT 96
[2025-02-14 12:00] VITALS: BP 128/79; PULSE 106; RESP 17; TEMP 37.1; O2SAT 100
[2025-02-14 16:00] VITALS: BP 104/76; PULSE 104; RESP 18; TEMP 36.7; O2SAT 95
[2025-02-14] MEDS: METOPROLOL TARTRATE 25MG TABLET PO SCH (17:00)
[2025-02-14 20:00] VITALS: BP 100/68; PULSE 104; RESP 18; TEMP 36.7; O2SAT 99
[2025-02-15] VITALS: BP 100/64; PULSE 106; RESP 17; TEMP 36.7; O2SAT 100
[2025-02-15 04:00] VITALS: BP 119/79; PULSE 105; RESP 17; TEMP 36.6; O2SAT 100
[2025-02-15 08:00] VITALS: BP 121/77; PULSE 68; RESP 18; TEMP 36.6; O2SAT 100
[2025-02-15] MEDS: ASCORBIC ACID 500 MG TABLET PO SCH (09:32)
[2025-02-15] MEDS: MULTIVITAMINS,THER W-MINERALS TABLET PO SCH (09:33)
[2025-02-15] MEDS: ZINC SULFATE 220 MG ( 50 ) CAPSULE PO SCH (09:33)
[2025-02-15 16:00] VITALS: BP 107/63; PULSE 101; RESP 19; TEMP 36.6
[2025-02-15 20:00] VITALS: BP 119/78; PULSE 103; RESP 18; TEMP 36.7; O2SAT 97
[2025-02-16] VITALS: BP 115/75; PULSE 98; RESP 16; TEMP 36.4; O2SAT 100
[2025-02-16 04:00] VITALS: BP 138/84; PULSE 100; RESP 19; TEMP 36.5; O2SAT 98
[2025-02-16 06:19] LABS: INR 1.1
[2025-02-16 06:20] LABS: BASOPHILS % 0.5 % (0.0-2.0); EOSINOPHILS % 0.2 % (0.0-5.0); HEMATOCRIT. 21.8 % (42.0-52.0); LYMPHOCYTES % 10.8 % (20.0-50.0); MEAN PLATELET VOLUME 8.3 fl (7.4-10.4); MONOCYTES % 13.0 % (2.0-8.0); NEUTROPHILS % 75.5 % (40.0-76.0); PLATELET 209 x1000/uL (130-400); RED BLOOD CELL COUNT 2.43 mill/uL (4.7-6.1); RED CELL DISTRIBUTION WIDTH 19.2 % (11.6-14.6)
[2025-02-16 06:23] LABS: UREA NITROGEN BLOOD 10 mg/dL (9-23)
[2025-02-16 06:46] LABS: CREATININE 0.4 mg/dL (0.6-1.3)
[2025-02-16 06:49] LABS: HEMOGLOBIN. 7.0 g/dL (14.0-18.0)
[2025-02-16 08:00] VITALS: BP 132/79; PULSE 105; RESP 17; TEMP 36.8; O2SAT 99
[2025-02-16 12:00] VITALS: BP 143/79; PULSE 89; RESP 18; TEMP 36.7; O2SAT 99
[2025-02-16] MEDS ORDERED: NALOXONE HCL 0.4MG/ML VIAL IV PRN (12:30)
[2025-02-16 16:00] VITALS: BP 116/73; PULSE 57; RESP 18; TEMP 36.7; O2SAT 98
[2025-02-16 20:00] VITALS: BP 124/70; PULSE 103; RESP 18; TEMP 36.7; O2SAT 93
[2025-02-17] VITALS (8 sets, daily range): BP systolic 99–136; BP diastolic 60–88; PULSE 102–108; RESP 16–20; TEMP 36.6–37.05852; O2SAT 98–99
[2025-02-17 08:15] LABS: BASOPHILS % 0.6 % (0.0-2.0); EOSINOPHILS % 0.3 % (0.0-5.0); HEMATOCRIT. 25.0 % (42.0-52.0); HEMOGLOBIN. 7.8 g/dL (14.0-18.0); LYMPHOCYTES % 11.8 % (20.0-50.0); MEAN PLATELET VOLUME 8.1 fl (7.4-10.4); MONOCYTES % 13.3 % (2.0-8.0); NEUTROPHILS % 74.0 % (40.0-76.0); PLATELET 227 x1000/uL (130-400); RED BLOOD CELL COUNT 2.85 mill/uL (4.7-6.1); RED CELL DISTRIBUTION WIDTH 18.8 % (11.6-14.6)
[2025-02-17 08:43] LABS: CREATININE 0.4 mg/dL (0.6-1.3); UREA NITROGEN BLOOD 9 mg/dL (9-23)
[2025-02-17] MEDS: LIDOCAINE HCL 1% 10 MG/ML 10ML VIAL ONE (13:32)
[2025-02-18] VITALS: BP 111/71; PULSE 105; RESP 17; TEMP 36.7; O2SAT 99
[2025-02-18 04:00] VITALS: BP 105/76; PULSE 106; RESP 18; TEMP 36.6; O2SAT 99
[2025-02-18 08:00] VITALS: BP 128/80; PULSE 94; RESP 19; TEMP 37.1; O2SAT 98
[2025-02-18] MEDS: METOPROLOL TARTRATE 25MG TABLET PO SCH (08:45)
[2025-02-18 12:00] VITALS: BP 114/77; PULSE 100; RESP 18; TEMP 37.7; O2SAT 100
[2025-02-18] MEDS: HYDROCODONE/ACETAMINOPHEN 10/325MG TABLET PO PRN (15:54)
[2025-02-18 16:00] VITALS: BP 126/78; PULSE 96; RESP 19; TEMP 37.2; O2SAT 98
[2025-02-18 20:00] VITALS: BP 107/70; PULSE 88; RESP 18; TEMP 36.6; O2SAT 98
[2025-02-18] MEDS: SODIUM HYPOCHLORITE 0.125% 473ML SOLUTION TOP SCH (21:00)
[2025-02-19] VITALS: BP 124/76; PULSE 94; RESP 19; TEMP 36.4; O2SAT 98
[2025-02-19 04:00] VITALS: BP 120/89; PULSE 99; RESP 18; TEMP 36.3; O2SAT 98
[2025-02-19 08:00] VITALS: BP 124/89; PULSE 97; RESP 18; TEMP 36.6; O2SAT 100
[2025-02-19 12:00] VITALS: BP 128/78; PULSE 95; RESP 18; TEMP 36.6; O2SAT 99
[2025-02-19 16:00] VITALS: BP 142/84; PULSE 98; RESP 19; TEMP 37.6; O2SAT 96
[2025-02-19 20:00] VITALS: BP 119/74; PULSE 97; RESP 18; TEMP 36.6; O2SAT 95
[2025-02-20] VITALS: BP 130/87; PULSE 99; RESP 18; TEMP 36.7; O2SAT 100
[2025-02-20 08:00] VITALS: BP 125/86; PULSE 103; RESP 18; TEMP 36.8; O2SAT 99
[2025-02-20] MEDS ORDERED: LIDOCAINE HCL/EPINEPHRINE 1%-EPI 1:100,000 20ML VIAL INFIL NR (14:00)
[2025-02-20 16:00] VITALS: BP 137/84; PULSE 97; RESP 17; TEMP 38.1; O2SAT 99
[2025-02-20] MEDS: ACETAMINOPHEN 325MG TABLET PO PRN (16:50)
[2025-02-20 20:00] VITALS: BP 110/150; PULSE 96; RESP 20; TEMP 36.9; O2SAT 98
[2025-02-20] MEDS: IOHEXOL-300 50 ML BOTTLE IV ONE (20:37)
[2025-02-21 04:00] VITALS: BP 118/80; PULSE 94; RESP 20; TEMP 37; O2SAT 98
[2025-02-21 08:00] VITALS: BP 136/83; PULSE 99; RESP 17; TEMP 37.4; O2SAT 100
[2025-02-21 12:00] VITALS: BP 125/79; PULSE 97; RESP 17; TEMP 37; O2SAT 100
[2025-02-21] MEDS: LACTULOSE 20G/30ML UDC PO SCH (14:31)
[2025-02-21] MEDS ORDERED: HYDR-4009 PO (15:37)
[2025-02-21] MEDS ORDERED: CEFT1PIG2 IV (15:37)
[2025-02-21] MEDS ORDERED: ZINC1CAP2 PO (15:37)
[2025-02-21] MEDS ORDERED: METO25TA6 PO (15:37)
[2025-02-21] MEDS ORDERED: LACT-390 PO (15:37)
[2025-02-21] MEDS ORDERED: SODI473S22 TOP (15:37)
[2025-02-21] MEDS ORDERED: [UNRECOGNIZED DRUG - CODE] IV (15:37)
[2025-02-21 16:00] VITALS: BP 107/66; PULSE 105; RESP 17; TEMP 37.5; O2SAT 100
[2025-02-21 20:00] VITALS: BP 104/66; PULSE 100; RESP 18; TEMP 37.2; O2SAT 100
[2025-02-22] VITALS (7 sets, daily range): BP systolic 107–140; BP diastolic 72–95; PULSE 93–108; RESP 16–20; TEMP 36.5–36.9; O2SAT 97–100
== END 2025-02-22 22:40 | DRG 853 ==
LOC: ER 18:29 → 6WST 21:45 → EDBEDREQ 21:56 → EDBEDREQTM 21:56 → ENRESERV 22:14 → 6WST 01-11 01:25 → 8EST 01-30 02:21
PROVIDERS: ADMIT Student in an Organized Health Care Education/Training Program; ATTEND Student in an Organized Health Care Education/Training Program
PROC: 30233N1 Transfusion of Nonautologous Red Blood Cells into Peripheral Vein, Percutaneous Approach (ICD-10-PCS; 2025-01-12)
PROC: 0JB70ZZ Excision of Back Subcutaneous Tissue and Fascia, Open Approach (ICD-10-PCS; 2025-01-13)
PROC: 0QB10ZZ Excision of Sacrum, Open Approach (ICD-10-PCS; 2025-01-13)
PROC: 02HV33Z Insertion of Infusion Device into Superior Vena Cava, Percutaneous Approach (ICD-10-PCS; 2025-01-16)
PROC: B548ZZA Ultrasonography of Superior Vena Cava, Guidance (ICD-10-PCS; 2025-01-16)
PROC: B5181ZA Fluoroscopy of Superior Vena Cava using Low Osmolar Contrast, Guidance (ICD-10-PCS; 2025-01-16)
PROC: 06H03DZ Insertion of Intraluminal Device into Inferior Vena Cava, Percutaneous Approach (ICD-10-PCS; 2025-01-17)
PROC: 0Y913ZZ Drainage of Left Buttock, Percutaneous Approach (ICD-10-PCS; 2025-01-18)
PROC: 0JBM0ZZ Excision of Left Upper Leg Subcutaneous Tissue and Fascia, Open Approach (ICD-10-PCS; principal; 2025-01-19)
PROC: 0DB78ZX Excision of Stomach, Pylorus, Via Natural or Artificial Opening Endoscopic, Diagnostic (ICD-10-PCS; 2025-01-19)
PROC: 0JB70ZZ Excision of Back Subcutaneous Tissue and Fascia, Open Approach (ICD-10-PCS; 2025-01-25)
PROC: 0QB10ZZ Excision of Sacrum, Open Approach (ICD-10-PCS; 2025-01-25)
PROC: 0F903ZZ Drainage of Liver, Percutaneous Approach (ICD-10-PCS; 2025-01-26)
PROC: 0KBQ0ZZ Excision of Right Upper Leg Muscle, Open Approach (ICD-10-PCS; 2025-02-18)
PROC: 0QB10ZZ Excision of Sacrum, Open Approach (ICD-10-PCS; 2025-02-21)
DX: A41.9 Sepsis, unspecified organism (principal); K75.0 Abscess of liver; L89.623 Pressure ulcer of left heel, stage 3; L89.613 Pressure ulcer of right heel, stage 3; L89.154 Pressure ulcer of sacral region, stage 4; L89.224 Pressure ulcer of left hip, stage 4; E87.20 Acidosis, unspecified; L02.31 Cutaneous abscess of buttock; K86.3 Pseudocyst of pancreas; I47.10 Supraventricular tachycardia, unspecified; I12.0 Hypertensive chronic kidney disease with stage 5 chronic kidney disease or end stage renal disease; L02.214 Cutaneous abscess of groin; L02.415 Cutaneous abscess of right lower limb; L02.416 Cutaneous abscess of left lower limb; R18.8 Other ascites; Z16.21 Resistance to vancomycin; I82.413 Acute embolism and thrombosis of femoral vein, bilateral; M46.20 Osteomyelitis of vertebra, site unspecified; C25.9 Malignant neoplasm of pancreas, unspecified; E11.69 Type 2 diabetes mellitus with other specified complication; E87.6 Hypokalemia; F19.11 Other psychoactive substance abuse, in remission; F20.9 Schizophrenia, unspecified; E11.51 Type 2 diabetes mellitus with diabetic peripheral angiopathy without gangrene; E83.51 Hypocalcemia; E83.39 Other disorders of phosphorus metabolism; E11.22 Type 2 diabetes mellitus with diabetic chronic kidney disease; E78.5 Hyperlipidemia, unspecified; K29.30 Chronic superficial gastritis without bleeding; K76.0 Fatty (change of) liver, not elsewhere classified; K82.8 Other specified diseases of gallbladder; D63.1 Anemia in chronic kidney disease; D50.9 Iron deficiency anemia, unspecified; R16.2 Hepatomegaly with splenomegaly, not elsewhere classified; F32.A Depression, unspecified; S71.101A Unspecified open wound, right thigh, initial encounter; Z79.899 Other long term (current) drug therapy; Z79.2 Long term (current) use of antibiotics; Z86.718 Personal history of other venous thrombosis and embolism; Z91.148 Patient's other noncompliance with medication regimen for other reason; Z95.828 Presence of other vascular implants and grafts; X58.XXXA Exposure to other specified factors, initial encounter; Y93.89 Activity, other specified; Y92.89 Other specified places as the place of occurrence of the external cause; Y99.8 Other external cause status
CPT/HCPCS: 10030; 20611; 36415; 37191; 71045; 74150; 74176; 74177; 74178; 74181; 76700; 77001; 80048; 80053; 80076; 80202; 81003; 82105; 82378; 82550; 82607; 82728; 82746; 82962; 83036; 83540; 83550; 83605; 83735; 84100; 84145; 85014; 85018; 85025; 85027; 85044; 86301; 86850; 86900; 86920; 87070; 87077; 87106; 87186; 88305; 88312; 88313; 93005; 93306; 93923; 93970; 99152; 99153; 99291; A4606; C1725; C1729; C1769; C1880; C1887; J0696; J0878; J1171; J1644; J1650; J2003; J2004; J2270; J2470; J2543; J2704; J3010; J3373; J3475; J3490; J7030; J7060; P9016; Q9967; G0500